=== PATIENT | male | born 1965 | race Caucasian/White ===

== ENCOUNTER 2017-09-30 07:48 | Emergency (ER) | payer BC ==
[2017-09-30] MEDS ORDERED: NA CHLORIDE 0.9% 1,000 ML ONE (08:31)
[2017-09-30] MEDS ORDERED: KETOROLAC 30 MG/ML INJ ONE (08:31)
[2017-09-30] MEDS ORDERED: ONDANSETRON 4 MG/2 ML VIAL ONE (08:34)
[2017-09-30 08:49] LABS: Absolute Lymphocytes (CBC) 0.8 K/uL (0.7-4.9); Absolute Neutrophil 9.9 K/uL (1.8-8.0); Basophils % 0.4 % (0-1.3); Eosinophils % 0.1 % (0-4.4); Hematocrit 45.7 % (39.6-49.0); MCH 29.1 pg (27.0-35.0); MCV 85.1 fL (80-100); MPV 8.3 fL (7.6-11.3); Monocytes % 8.7 % (3.3-12.3); RBC Red Blood Cell Count 5.37 M/uL (4.33-5.43)
--- NOTE | 2017-09-30 08:55 | RAD REPORT ---
EXAM DESCRIPTION: CT - Stone Protocol - 09/30/2017 8:29 am CLINICAL HISTORY: Abdominal pain. Left-sided pain COMPARISON: None. TECHNIQUE: Computed axial tomography of the abdomen pelvis was obtained without oral or IV contrast. Lack of IV and oral contrast limits evaluation of solid organs, bowel, and vessels. Coronal reformat amadeo images were obtained and reviewed. All CT scans are performed using dose optimization technique as appropriate and may include automated exposure control or mA/KV adjustment according to patient size. FINDINGS: Small bilateral renal calculi are present. Mild left hydronephrosis is present with ill-de fined fluid within the left perirenal space. A 5 millimeter calculus is present within the proximal l eft ureter Hounsfield unit 1434. 16 millimeter low-density mass within the right kidney is nonspecifi c without IV contrast but probably represents a cyst. The liver has a diminished attenuation consistent with fatty infiltration. Spleen, pancreas and adren als appear grossly normal Diverticula stem from the colon without evidence of diverticulitis. The appendix appears normal IMPRESSION: 5 millimeter calculus within the proximal left ureter resulting in mild left hydronephro sis
[2017-09-30 09:22] LABS: Potassium 4.2 mEq/L (3.6-5.0)
[2017-09-30 09:28] LABS: Albumin 4.5 g/dL (3.2-5.5); Bilirubin Direct 0.1 mg/dL (0-0.2); Bilirubin Total 1.2 mg/dL (0.3-1.2)
[2017-09-30] MEDS ORDERED: TAMSULOSIN 0.4 MG SR CAP ONE (09:50)
[2017-09-30 10:00] LABS: Urine Blood 2+ (NEG); Urine Glucose 2+ (NEG); Urine Protein NEGATIVE (NEG); Urine Specific Gravity 1.015 (1.005-1.030); Urine pH 5.5 (5.0-7.0)
--- NOTE | 2017-09-30 10:13 | EDPHYS ---
Physician Documentation [facility] Name: Jimi Michael Age: 51 yrs Sex: Male : 1965 Arrival Date: 09/30/2017 Time: 07:49 Bed 8 Private MD: ED Physician Gildardo Dejesus HPI: 09/30 08:08 This 51 yrs old Male presents to ER via Unassigned with complaints of pm1 Possible Kidney Stone. 08:08 The patient complains of pain in the left low back. The pain does not radiate. Onset: pm1 The symptoms/episode began/occurred 2 day(s) ago. Modifying factors: The symptoms are alleviated by nothing. the symptoms are aggravated by nothing. Associated signs and symptoms: Pertinent positives: nausea, vomiting, Pertinent negatives: diarrhea, dysuria, fever. Severity of pain: in the emergency department the pain is a 6 / 10. The patient has not experienced similar symptoms in the past. The patient has not recently seen a physician, the patient's primary care provider is Dr. Troy. Historical: - Allergies: 08:14 No Known Allergies; ss - Home Meds: 08:14 Metformin Oral [Active]; Glimepiride Oral [Active]; Lisinopril Oral [Active]; ss - PMHx: 08:14 Hypertension; Diabetes - NIDDM; ss - Immunization history:: Adult Immunizations up to date. - Social history:: Smoking status: Patient/guardian denies using tobacco. ROS: 08:08 Constitutional: Negative for fever, chills, and weight loss, Eyes: Negative for injury, pm1 pain, redness, and discharge, ENT: Negative for injury, pain, and discharge, Neck: Negative for injury, pain, and swelling, Cardiovascular: Negative for chest pain, palpitations, and edema, Respiratory: Negative for shortness of breath, cough, wheezing, and pleuritic chest pain. 08:08 : Negative for injury, bleeding, discharge, and swelling, MS/Extremity: Negative for injury and deformity, Skin: Negative for injury, rash, and discoloration, Neuro: Negative for headache, weakness, numbness, tingling, and seizure. 08:08 Abdomen/GI: Positive for nausea and vomiting, Negative for abdominal pain, diarrhea. 08:08 Back: Positive for flank pain, on the left. Exam: 08:08 Constitutional: This is a well developed, well nourished patient who is awake, alert, pm1 and in no acute distress. Head/Face: Normocephalic, atraumatic. Eyes: Pupils equal round and reactive to light, extra-ocular motions intact. Lids and lashes normal. Conjunctiva and sclera are non-icteric and not injected. Cornea within normal limits. Periorbital areas with no swelling, redness, or edema. ENT: Nares patent. No nasal discharge, no septal abnormalities noted. Tympanic membranes are normal and external auditory canals are clear. Oropharynx with no redness, swelling, or masses, exudates, or evidence of obstruction, uvula midline. Mucous membranes moist. Neck: Trachea midline, no thyromegaly or masses palpated, and no cervical lymphadenopathy. Supple, full range of motion without nuchal rigidity, or vertebral point tenderness. No Meningismus. Chest/axilla: Normal chest wall appearance and motion. Nontender with no deformity. No lesions are appreciated. Cardiovascular: Regular rate and rhythm with a normal S1 and S2. No gallops, murmurs, or rubs. Normal PMI, no JVD. No pulse deficits. Respiratory: Lungs have equal breath sounds bilaterally, clear to auscultation and percussion. No rales, rhonchi or wheezes noted. No increased work of breathing, no retractions or nasal flaring. 08:08 Back: No spinal tenderness. No costovertebral tenderness. Full range of motion. Skin: Warm, dry with normal turgor. Normal color with no rashes, no lesions, and no evidence of cellulitis. MS/ Extremity: Pulses equal, no cyanosis. Neurovascular intact. Full, normal range of motion. 08:08 Abdomen/GI: Inspection: abdomen appears normal, Bowel sounds: normal, Palpation: abdomen is soft and non-tender. 08:08 Neuro: Orientation: is normal, Motor: is normal, moves all fours, Gait: is steady, at a normal pace, without difficulty. Vital Signs: 08:14 BP 156 / 97; Pulse 96; Resp 15; Temp 97.5(TE); Pulse Ox 96% on R/A; Weight 108.86 kg; ss Height 6 ft. 2 in. (187.96 cm); Pain 6/10; 09:00 BP 158 / 94; Pulse 91; Resp 18; Pulse Ox 98% on R/A; ph 09:54 BP 142 / 91; Pulse 84; Resp 18; Temp 98.0; Pulse Ox 99% ; Pain 0/10; ph 08:14 Body Mass Index 30.81 (108.86 kg, 187.96 cm) ss MDM: 08:08 Patient medically screened. pm1 09:17 Data reviewed: vital signs. Data interpreted: Pulse oximetry: on room air is 96 %. pm1 Interpretation: normal. Counseling: I had a detailed discussion with the patient and/or guardian regarding: the historical points, exam findings, and any diagnostic results supporting the discharge/admit diagnosis, radiology results. 09/30 08:07 Order name: Basic Metabolic Panel; Complete Time: 10:12 pm1 09/30 08:07 Order name: CBC with Diff; Complete Time: 09:00 pm1 09/30 08:07 Order name: Hepatic Function; Complete Time: 10:12 pm1 09/30 08:07 Order name: Lipase; Complete Time: 10:12 pm1 09/30 08:07 Order name: CT Stone Protocol; Complete Time: 09:00 pm1 09/30 09:00 Order name: Urine Dipstick--Ancillary (enter results); Complete Time: 10:12 eb 09/30 08:07 Order name: IV Saline Lock; Complete Time: 08:59 pm1 09/30 08:07 Order name: Labs collected and sent; Complete Time: 08:59 pm1 09/30 08:07 Order name: Urine Dipstick-Ancillary (obtain specimen); Complete Time: 08:59 pm1 Administered Medications: 08:45 Drug: NS 0.9% 1000 ml Route: IV; Rate: 1000 ml; Site: right hand; ph 11:23 Follow up: IV Status: Completed infusion ss 08:45 Drug: TORadol 30 mg Route: IVP; Site: right hand; ph 11:24 Follow up: Response: No adverse reaction; Marked relief of symptoms; Pain is decreased ss 08:45 Drug: Zofran 4 mg Route: IVP; Site: right hand; ph 11:24 Follow up: Response: No adverse reaction ss 09:48 Drug: Flomax 0.4 mg Route: PO; ph 11:24 Follow up: Response: No adverse reaction; Marked relief of symptoms ss 11:22 Drug: Cipro 500 mg Route: PO; ph 11:23 Follow up: Response: No adverse reaction; Medication administered at discharge. ss Disposition: 14:04 Co-signature as Attending Physician, Gildardo Dejesus MD. rn Disposition: 09/30/17 10:13 Discharged to Home. Impression: Mild left hydronephrosis with left ureteral calculus. - Condition is Stable. - Discharge Instructions: Kidney Stones, Dietary Guidelines to Help Prevent Kidney Stones. - Prescriptions for Tylenol- Codeine #3 300-30 mg Oral Tablet - take 2 tablets by ORAL route every 6 hours As needed; 20 tablet. Flomax 0.4 mg Oral Capsule, Sust. Release 24 hr - take 1 capsule by ORAL route once daily 1/2 hour following the same meal each day; 30 capsule. promethazine 25 mg Oral Tablet - take 1 tablet by ORAL route every 6 hours As needed; 20 tablet. Cipro 500 mg Oral Tablet - take 1 tablet by ORAL route every 12 hours for 7 days; 14 tablet. - Medication Reconciliation Form, Thank You Letter, Antibiotic Education, Prescription Opioid Use form. - Follow up: Mateo Liu; When: 2 - 3 days; Reason: Recheck today's complaints, Continuance of care, Re-evaluation by your physician. - Problem is new. - Symptoms have improved. Signatures: Dispatcher [employer] EDMS Gildardo Dejesus MD MD rn Smirch, Shelby, RN RN ss Hall, Patricia, RN RN ph Marinas, Patrick, FRANK [employer] HEAVY pm1 Corrections: (The following items were deleted from the chart) 11:25 10:13 09/30/2017 10:13 Discharged to Home. Impression: Mild left hydronephrosis with ss left ureteral calculus. Condition is Stable. Discharge Instructions: Kidney Stones, Dietary Guidelines to Help Prevent Kidney Stones. Prescriptions for Tylenol-Codeine #3 300-30 mg Oral Tablet - take 2 tablets by ORAL route every 6 hours As needed; 20 tablet, Flomax 0.4 mg Oral Capsule, Sust. Release 24 hr - take 1 capsule by ORAL route once daily 1/2 hour following the same meal each day; 30 capsule, promethazine 25 mg Oral Tablet - take 1 tablet by ORAL route every 6 hours As needed; 20 tablet. and Forms are Medication Reconciliation Form, Thank You Letter, Antibiotic Education, Prescription Opioid Use. Follow up: Mateo Liu; When: 2 - 3 days; Reason: Recheck today's complaints, Continuance of care, Re-evaluation by your physician. Problem is new. Symptoms have improved. pm1
--- NOTE | 2017-09-30 10:13 | ER ---
Nurse's Notes [facility] Name: Jimi Michael Age: 51 yrs Sex: Male : 1965 Arrival Date: 09/30/2017 Time: 07:49 Bed 8 Private MD: Diagnosis: Mild left hydronephrosis with left ureteral calculus Presentation: 09/30 08:10 Presenting complaint: Patient states: intermittent L low back pain with nausea/ ss vomiting that began two days ago. Transition of care: patient was not received from another setting of care. Onset of symptoms was September 28, 2017. Initial Sepsis Screen: Does the patient meet any 2 criteria? No. Patient's initial sepsis screen is negative. Does the patient have a suspected source of infection? No. Patient's initial sepsis screen is negative. Care prior to arrival: None. 08:10 Method Of Arrival: Ambulatory ss 08:10 Acuity: GLADYS 3 ss Historical: - Allergies: 08:14 No Known Allergies; ss - Home Meds: 08:14 Metformin Oral [Active]; Glimepiride Oral [Active]; Lisinopril Oral [Active]; ss - PMHx: 08:14 Hypertension; Diabetes - NIDDM; ss - Immunization history:: Adult Immunizations up to date. - Social history:: Smoking status: Patient/guardian denies using tobacco. Screenin:04 Abuse screen: Denies threats or abuse. Denies injuries from another. Nutritional ph screening: No deficits noted. Tuberculosis screening: No symptoms or risk factors identified. Fall Risk None identified. Assessment: 09:02 General: Appears in no apparent distress. uncomfortable, Behavior is calm, cooperative, ph appropriate for age, Denies fever, feeling ill. Pain: Complains of pain in left low back Pain does not radiate. Neuro: Level of Consciousness is awake, alert, obeys commands, Oriented to person, place, time, situation. Cardiovascular: Capillary refill < 3 seconds Patient's skin is warm and dry. Respiratory: Airway is patent Respiratory effort is even, unlabored, Respiratory pattern is regular, symmetrical. GI: Abdomen is round non-distended, Bowel sounds present X 4 quads. Abd is soft and non tender X 4 quads. Reports nausea, vomiting, Patient currently denies abdominal pain, diarrhea. : Reports pain in left in lower back decreased urination. Derm: Skin is intact, is healthy with good turgor, Skin is pink, warm \T\ dry. Musculoskeletal: Circulation, motion, and sensation intact. Range of motion: intact in all extremities. 09:51 Reassessment: Patient appears in no apparent distress at this time. Patient and/or ph family updated on plan of care and expected duration. Pain level reassessed. Patient is alert, oriented x 3, equal unlabored respirations, skin warm/dry/pink. Pt reports that pain and nausea have resolved, rates pain 0/10, pt now resting comfortably, awaiting discharge. Vital Signs: 08:14 BP 156 / 97; Pulse 96; Resp 15; Temp 97.5(TE); Pulse Ox 96% on R/A; Weight 108.86 kg; ss Height 6 ft. 2 in. (187.96 cm); Pain 6/10; 09:00 BP 158 / 94; Pulse 91; Resp 18; Pulse Ox 98% on R/A; ph 09:54 BP 142 / 91; Pulse 84; Resp 18; Temp 98.0; Pulse Ox 99% ; Pain 0/10; ph 08:14 Body Mass Index 30.81 (108.86 kg, 187.96 cm) ss ED Course: 07:49 Patient arrived in ED. sb2 08:03 Reyes Baig NP is PHCP. pm1 08:03 Gildardo Dejesus MD is Attending Physician. pm1 08:11 Triage completed. ss 08:14 Arm band placed on right wrist. ss 08:30 CT Stone Protocol In Process Unspecified. EDMS 08:30 CT completed. Patient tolerated procedure well. Patient moved back from CT. bq 08:42 Initial lab(s) drawn, by me, sent to lab. Inserted saline lock: 22 gauge in right hand, ph using aseptic technique. 09:01 Marlyn John, RN is Primary Nurse. ph 09:05 Patient has correct armband on for positive identification. Placed in gown. Bed in low ph position. Call light in reach. Pulse ox on. NIBP on. 10:13 Mateo Liu MD is Referral Physician. pm1 11:23 No provider procedures requiring assistance completed. IV discontinued, intact, ss bleeding controlled, No redness/swelling at site. Pressure dressing applied. Administered Medications: 08:45 Drug: NS 0.9% 1000 ml Route: IV; Rate: 1000 ml; Site: right hand; ph 11:23 Follow up: IV Status: Completed infusion ss 08:45 Drug: TORadol 30 mg Route: IVP; Site: right hand; ph 11:24 Follow up: Response: No adverse reaction; Marked relief of symptoms; Pain is decreased ss 08:45 Drug: Zofran 4 mg Route: IVP; Site: right hand; ph 11:24 Follow up: Response: No adverse reaction ss 09:48 Drug: Flomax 0.4 mg Route: PO; ph 11:24 Follow up: Response: No adverse reaction; Marked relief of symptoms ss 11:22 Drug: Cipro 500 mg Route: PO; ph 11:23 Follow up: Response: No adverse reaction; Medication administered at discharge. Outcome: 10:13 Discharge ordered by . pm1 11:23 Discharged to home ambulatory. 11:23 Condition: good 11:23 Discharge instructions given to patient, Instructed on discharge instructions, follow up and referral plans. medication usage, Demonstrated understanding of instructions, follow-up care, medications, Prescriptions given X 4. 11:25 Patient left the ED. Signatures: Dispatcher [employer] EDMS Tila Herzog Shelby, RN RN ss Marlyn John RN RN Reyes Baig, FRANK SNAGGER pm1 Lucrecia Ron2
[2017-09-30] MEDS ORDERED: CIPROFLOXACIN HCL 500 MG TAB ONE (11:15)
== END 2017-09-30 11:25 | disposition home or self-care (01) ==
LOC: ER 07:48
DX: N13.2 Hydronephrosis with renal and ureteral calculous obstruction (principal); I10 Essential (primary) hypertension; E11.9 Type 2 diabetes mellitus without complications
CPT/HCPCS: 36415; 74176; 76377; 80048; 80076; 81003; 83690; 85025; 96361; 96374; 96375; 99284; J2405; J7030

== ENCOUNTER 2017-10-10 09:50 | Day surgery (SDC) | payer BC ==
[2017-10-10] MEDS ORDERED: MIDAZOLAM HCL 2 MG/2 ML INJ ONE (09:56)
[2017-10-10] MEDS ORDERED: PROPOFOL 200 MG/20 ML VIAL IV ONE (09:56)
[2017-10-10] MEDS ORDERED: FENTANYL CITR 100 MCG/2 ML ONE (09:57)
[2017-10-10] MEDS ORDERED: LIDOCAINE 1% MPF 5 ML VIAL ONE (09:57)
[2017-10-10 10:02] LABS: Absolute Lymphocytes (CBC) 1.2 K/uL (0.7-4.9); Absolute Monocytes 0.8 K/uL (0.1-1.3); Absolute Neutrophil 4.3 K/uL (1.8-8.0); Basophils % 0.9 % (0-1.3); Eosinophils % 1.2 % (0-4.4); Hematocrit 43.4 % (39.6-49.0); Lymphocytes % 19.2 % (15.3-44.8); MCH 29.4 pg (27.0-35.0); MCV 85.1 fL (80-100); MPV 7.5 fL (7.6-11.3); Monocytes % 12.5 % (3.3-12.3)
[2017-10-10 10:03] LABS: Urine Appearance CLEAR; Urine Bilirubin NEGATIVE (NEG); Urine Blood NEGATIVE (NEG); Urine Color YELLOW; Urine Glucose 3+ (NEG); Urine Protein NEGATIVE (NEG); Urine Specific Gravity >=1.030 (1.005-1.030); Urine pH 5.5 (5.0-7.0)
[2017-10-10 10:04] LABS: Urine Microscopic Reflex NO UMIC
[2017-10-10] MEDS ORDERED: GENTAMICIN 80 MG/100 ML BAG 80 MG/100 ML BAG IV ONE (10:05)
[2017-10-10] MEDS ORDERED: NA CHLORIDE 0.9% 1,000 ML ONE (10:05)
[2017-10-10 10:06] LABS: Protime INR 1.04
[2017-10-10 10:16] LABS: Potassium 4.1 mEq/L (3.6-5.0)
[2017-10-10 10:24] LABS: Phosphorus 4.2 mg/dL (2.5-4.3); Uric Acid 6.2 mg/dL (4.8-8.7)
--- NOTE | 2017-10-10 10:41 | RAD REPORT ---
EXAM DESCRIPTION: RAD - Abdomen 1 View (KUB) - 10/10/2017 9:53 am CLINICAL HISTORY: Flank pain. COMPARISON: 10/09/2017 FINDINGS: The bowel gas pattern is non-obstructive. No evidence of free air or pneumatosis. Small ca lcification to the left of the L4 levels again noted likely within the ureter. Position of the calcul us is essentially unchanged since the comparative study.
[2017-10-10] MEDS ORDERED: GLYCOPYRROLATE 0.2 MG/ML SYR ONE (10:57)
[2017-10-10] MEDS ORDERED: Phenylephrine HCl 10 MG/ML 1 ML VIAL ONE (11:07)
[2017-10-10] MEDS ORDERED: KETOROLAC 30 MG/ML INJ ONE (11:15)
--- NOTE | 2017-10-10 15:28 | EKG ---
Test Date: 2017-10-10 Test Time: 09:40:33 Corporate Development Analyst: LULA MEASUREMENT RESULTS: Intervals: Rate: 75 MI: 140 QRSD: 86 QT: 388 QTc: 433 [place]: P: 37 MI: 140 QRS: 15 T: 9 INTERPRETIVE STATEMENTS: Normal sinus rhythm Normal ECG No previous ECG available for comparison Electronically Signed On 10-10-17 15:25:50 CDT by Jayy Inman
== END 2017-10-10 13:10 | disposition home or self-care (01) ==
LOC: OR 09:50
PROVIDERS: ATTEND Urology
PROC: 0TF4XZZ Fragmentation in Left Kidney Pelvis, External Approach (ICD-10-PCS; principal; 2017-10-10 11:15)
DX: N20.0 Calculus of kidney (principal); E11.9 Type 2 diabetes mellitus without complications; I10 Essential (primary) hypertension; G47.30 Sleep apnea, unspecified; Z80.0 Family history of malignant neoplasm of digestive organs; Z82.3 Family history of stroke
CPT/HCPCS: 36415; 50590; 74018; 80048; 81003; 82962; 84100; 84550; 85025; 85610; 85730; 87086; 87088; 93005; J1580; J2250; J2370; J3010; J7030